=== PATIENT | male | born 1995 | race Hispanic/Latino ===

== ENCOUNTER 2016-08-30 17:21 | Emergency (ER) | payer SELFPAY ==
[~2016-08-30] VITALS: Ht 190.5 cm; Wt 130.0 kg
[~2016-08-30 17:21] MED LIST: AMOXICILLIN500 MG PO; BACTRIM DS1 TAB PO; BENTYL20 MG OR; GENTAMICIN SULF5 ML OD; KEFLEX500 MG OR; LORTAB 5 OR; MUCINEX D1 TAB PO; NAPROSYN500 MG PO; NO; NO HOME MEDS; PREVACID30 M2 PO; REGLAN10 MG PO; ULTRAM50 M1 PO; ULTRAM50 MG OR; ZOFRAN ODT4 MG OR
[2016-08-30] MEDS ORDERED: AMOXICILLIN500 MG PO (19:11)
[2016-08-30] MEDS ORDERED: ULTRAM50 M1 PO (19:11)
[2016-08-30 19:45] VITALS: BP 140/71
== END 2016-08-30 19:45 | disposition home or self-care (01) | DRG 605 ==
LOC: ED 17:21
PROC: 0HQKXZZ Repair Right Lower Leg Skin, External Approach (ICD-10-PCS; principal; 2016-08-30)
DX: S81.811A Laceration without foreign body, right lower leg, initial encounter (principal); S42.021A Displaced fracture of shaft of right clavicle, initial encounter for closed fracture; V86.49XA Person injured while boarding or alighting from other special all-terrain or other off-road motor vehicle, initial encounter; Y93.I9 Activity, other involving external motion; Y92.488 Other paved roadways as the place of occurrence of the external cause

== ENCOUNTER 2018-07-30 08:26 | Emergency (ER) | payer SELFPAY ==
[~2018-07-30] VITALS: Ht 190.5 cm; Wt 136.0 kg
[2018-07-30] MEDS ORDERED: TORADOL PO (09:36)
== END 2018-07-30 09:40 | disposition home or self-care (01) | DRG 605 ==
LOC: ED 08:26
DX: S20.212A Contusion of left front wall of thorax, initial encounter (principal); W55.22XA Struck by cow, initial encounter

== ENCOUNTER 2020-05-29 | Emergency (ER) | payer SELFPAY ==
[~2020-05-29] MED LIST changes: +TORADOL PO
[2020-05-29] MEDS ORDERED: NAPROXEN500 MG PO (13:41)
== END 2020-05-29 13:53 | disposition home or self-care (01) | DRG 605 ==
DX: S20.213A Contusion of bilateral front wall of thorax, initial encounter (principal); W18.2XXA Fall in (into) shower or empty bathtub, initial encounter; Y93.E1 Activity, personal bathing and showering; Y92.002 Bathroom of unspecified non-institutional (private) residence as the place of occurrence of the external cause; F17.200 Nicotine dependence, unspecified, uncomplicated

== ENCOUNTER 2021-10-29 17:56 | Emergency (ER) | payer SELFPAY ==
[~2021-10-29] VITALS: Ht 193 cm; Wt 136.3 kg
[~2021-10-29 17:56] MED LIST changes: +NAPROXEN500 MG PO
[2021-10-29 18:05] VITALS: BP 147/103
[2021-10-29 18:20] VITALS: BP 150/88
[2021-10-29 18:31] VITALS: BP 141/96
[2021-10-29 18:41] LABS: HEMATOCRIT 43.2 % (39.0-50.0); HEMOGLOBIN 14.9 g/dl (14.0-18.0); IMMATURE GRANULOCYTES 0.6 % (0.0-5.0); MEAN CORPUSCULAR HGB 32.3 pG CALC (26.0-32.0); MEAN CORPUSCULAR HGB CONC 34.5 g/dL CAL (32.0-36.0); NEUT# 5.32 thou/uL (1.82-7.42); RED BLOOD COUNT 4.62 mill/uL (4.70-6.10); RED CELL DISTRI WIDTH 11.7 % (11.5-15.5)
[2021-10-29 18:42] LABS: MEAN CELL VOLUME 93.5 fL CALC (80.0-100.0)
[2021-10-29 18:46] VITALS: BP 133/86
[2021-10-29 18:56] LABS: ALKALINE PHOSPHATASE 97 u/l (38-126); ANION GAP 15 (6-22 (CALC)); BILIRUBIN, TOTAL 0.3 mg/dL (0.0-1.4); BUN 16 mg/dL (9-20); BUN/CREATININE RATIO 21 (12-20 (CALC)); CARBON DIOXIDE 22 mmol/l (22-30); CHLORIDE 104 mmol/l (95-108); CREATININE 0.8 mg/dL (0.7-1.3); GFR FOR AFR.AMER. > 60 ML/MIN (>=60 (CALC)); GFR OTHER RACES > 60 ML/MIN (>=60 (CALC)); POTASSIUM 4.2 mmol/l (3.5-5.1); SODIUM 136 mmol/l (137-146)
[2021-10-29 19:17] LABS: ALBUMIN 4.5 g/dL (3.2-5.0); SGOT/AST 44 u/l (17-59)
[2021-10-29 21:17] VITALS: BP 133/86
== END 2021-10-29 21:18 | disposition home or self-care (01) | DRG 923 ==
LOC: ED 17:56
PROVIDERS: Nurse Practitioner
DX: T75.09XA Other effects of lightning, initial encounter (principal); M79.642 Pain in left hand; F17.200 Nicotine dependence, unspecified, uncomplicated; Y92.008 Other place in unspecified non-institutional (private) residence as the place of occurrence of the external cause